=== PATIENT | male | born 1955 | race Two or more races ===

== ENCOUNTER 2020-06-10 10:34 | Outpatient (CLI) | payer OTHER | END 2020-06-10 10:47 | disposition home or self-care (01) | LOC: SONOGRAMA 10:34 → MAMO-SONO 10:45 → SONOGRAMA 10:47 | PROVIDERS: ATTEND Family Medicine | DX: G56.01 Carpal tunnel syndrome, right upper limb (principal) ==

== ENCOUNTER 2022-12-30 21:12 | Emergency (ER) | payer OTHER ==
[~2022-12-30] VITALS: Ht 177.8 cm; Wt 74.8 kg
[2022-12-30] MEDS ORDERED: COZAAR50 MG (21:31)
[2022-12-30] MEDS ORDERED: ATORVASTATIN CA10 MG (21:31)
== END 2022-12-30 23:27 | disposition home or self-care (01) ==
LOC: ER 21:12
DX: R55 Syncope and collapse (principal); R53.81 Other malaise

== ENCOUNTER 2023-06-06 11:11 | Emergency (ER) | payer OTHER ==
[~2023-06-06] VITALS: Ht 170.2 cm; Wt 68.0 kg
[~2023-06-06 11:11] MED LIST: ATORVASTATIN CA10 MG; COZAAR50 MG
== END 2023-06-06 16:18 | disposition home or self-care (01) ==
LOC: ER 11:11
DX: S01.81XA Laceration without foreign body of other part of head, initial encounter (principal); X58.XXXA Exposure to other specified factors, initial encounter; Y93.9 Activity, unspecified; Y92.9 Unspecified place or not applicable; Y99.9 Unspecified external cause status